=== PATIENT | female | born 1955 | race Caucasian/White ===

== ENCOUNTER 2016-09-14 09:34 | Inpatient (IN) | payer MEDICAID ==
[~2016-09-14] VITALS: Ht 165.1 cm; Wt 74.9 kg
[2016-09-14] VITALS (10 sets, daily range): BP systolic 105–184; BP diastolic 57–91; PULSE 49–70; RESP 12–16; TEMP 98.3; Ht 165.1 cm; Wt 74.9 kg
[2016-09-14] MEDS ORDERED: LABETALOL HCL 20MG INJ IV ONE ×2 (11:00→12:30)
--- NOTE | 2016-09-14 11:29 | RADRPT ---
PROCEDURE: Chest Radiograph. CLINICAL INDICATION: Hypertension. Chest pain. TECHNIQUE: Single frontal chest radiograph. COMPARISON: None available FINDINGS: The cardiomediastinal silhouette is within normal limits. No infiltrate or effusion is seen. Th e bones are intact. IMPRESSION: 1. Unremarkable chest radiograph. RPTAT: KK .Randolph Tran MD, MD Date Time Electronically viewed and signed by .Randolph Tran MD, on 09/14/2016 11:28 .B/
[2016-09-14] MEDS ORDERED: ONDANSETRON 4 MG INJ IV STA ×3 (11:36→13:34)
[2016-09-14 11:56] LABS: BASOPHILS % 0.3 % (0.0-2.0); EOSINOPHILS % 0.3 % (0.0-7.0); HEMOGLOBIN 14.1 g/dl (12.0-16.0); LYMPHOCYTES # 1.4 10^3/ul (0.8-2.9); LYMPHOCYTES % 13.2 % (15.0-51.0); MEAN CORPUSCULAR HEMOGLOBIN 29.1 pg (29.0-33.0); MEAN CORPUSCULAR HGB CONC 33.5 g/dl (32.0-37.0); MEAN CORPUSCULAR VOLUME 86.9 fl (82.0-101.0); MEAN PLATELET VOLUME 8.6 fl (7.4-10.4); MONOCYTE # 0.4 10^3/ul (0.3-0.9); MONOCYTES % 3.4 % (0.0-11.0); NEUTROPHIL # 8.6 10^3/ul (1.6-7.5); NEUTROPHILS % 82.8 % (39.0-77.0); PLATELET COUNT 270 10^3/UL (140-440); RED BLOOD COUNT 4.83 10^6/ul (4.20-5.40); UNCORRECTED WBC 10.4 10^3/ul (4.8-10.8); WHITE BLOOD COUNT 10.4 10^3/ul (4.8-10.8)
[2016-09-14] MEDS ORDERED: hydrALAzine 20 MG INJ IV ONE (12:00)
[2016-09-14] MEDS ORDERED: MECLIZINE 12.5 MG TAB PO ONE (12:00)
[2016-09-14 12:07] LABS: CONDITION 1
[2016-09-14 12:09] LABS: ALBUMIN 4.4 g/dl (3.3-4.9); CHLORIDE 104 mmol/L (97-110); SODIUM 144 mmol/L (135-144)
[2016-09-14 12:10] LABS: POTASSIUM 3.7 mmol/L (3.5-5.1)
[2016-09-14 12:12] LABS: ALANINE AMINOTRANSFERASE 24 IU/L (13-69); ALBUMIN/GLOBULIN RATIO 1.18; ALKALINE PHOSPHATASE 90 IU/L (42-121); ANION GAP 18 (8-16); ASPARTATE AMINO TRANSFERASE 23 IU/L (15-46); BILIRUBIN,INDIRECT 0.3 mg/dl (0-1.1); BILIRUBIN,TOTAL 0.3 mg/dl (0.2-1.3); BLOOD UREA NITROGEN 12 mg/dl (7-20); CARBON DIOXIDE 26 mmol/L (21-31); CREATININE 0.63 mg/dl (0.44-1.00); GLUCOSE 128 mg/dl (70-220); TOTAL PROTEIN 8.1 g/dl (6.1-8.1)
--- NOTE | 2016-09-14 12:12 | RADRPT ---
PROCEDURE: CT Head without. CLINICAL INDICATION: Hypertension with headache. TECHNIQUE: The study was performed utilizing a multi-slice, multidetector CT scanner. Direct spira l 1 mm axial sections were obtained through the head without the use of intravenous contrast materia l. Coronal and sagittal reformations were obtained. The images were reviewed on a PACS workstation. RADIATION DOSE: CTDIvol: 44.8 mGyDLP: 630.2 mGy-cm COMPARISON: No prior studies are available for comparison. FINDINGS: There is a well-circumscribed, wedge-shaped hyperdensity involving the left posterior temporal lobe (axial series image 12, coronal series image 60), with minimal adjacent vasogenic edema. The geronimo-w richardson matter differentiation appears preserved of the remaining brain parenchyma. There is no extra- axial fluid collection, mass lesion, midline shift or hydrocephalus. The ventricles, sulci and cist erns are within normal limits. The remaining white matter is unremarkable. The basal cisterns are patent. The midline structures are intact. The orbits, calvarium and extracranial soft tissues are normal in appearance. The visualized paranasal sinuses, mastoid air cells and middle ear cavities a re normally aerated. IMPRESSION: 1. Wedge-shaped hyperdensity involving the left posterior temporal lobe, with mild edema in the adj acent white matter. This finding is concerning for acute hemorrhagic infarct. MRI is recommended f or further evaluation. 2. No extra-axial fluid collection, mass lesion or hydrocephalous. The above findings were discussed with Patient's physician JASMIN DWYER by telephone on 12:08:40 PM. RPTAT: DD .Hans Padron MD, Date Time Electronically viewed and signed by .Hans Padron MD, MD on 09/14/2016 12:11 .S/
[2016-09-14 12:13] LABS: CALCIUM 9.6 mg/dl (8.4-10.2)
[2016-09-14 12:18] LABS: INR 1.07; PARTIAL THROMBOPLASTIN TIME 29.2 Sec (25.0-35.0); PROTIME 13.9 Sec (12.2-14.2); PT RATIO 1.1
--- NOTE | 2016-09-14 12:55 | ERA ---
ER Documentation Chief Complaint Date/Time DATE: 09/14/16 TIME: 12:49 Chief Complaint DIZZINESS, NAUSEA, ONSET LAST NIGHT, NO HEADACHE, AAOX4, NO WEAKNESS HPI This is a very pleasant 61-year-old female that presents to the emergency department with no past medical history complaining of a sudden onset of dizziness that began yesterday evening roughly 10 hours prior to arrival. She stated the dizziness was worse when she would stand up or walk around and was better when she was lying supine and closing her eyes. She denied any vertigo. She felt nauseous but did not experience any hemoptysis hematemesis or melanotic stools. The patient denies any changes in vision nor is the patient experiencing headache. She denies any weakness of her upper or lower extremities. She denies any abdominal pain. She has no shortness of breath at rest or exertion. She has no chest pain or pressure that radiates to the neck or back or jaw. She did not take any analgesic medication prior to arrival ROS All systems reviewed and are negative except as per history of present illness. Medications Home Meds No Active Prescriptions or Reported Meds Allergies Allergies: Coded Allergies: No Known Allergy (Unverified , 09/14/16) PMhx/Soc Medical and Surgical Hx: pt denies Medical Hx, pt denies Surgical Hx Hx Alcohol Use: No Hx Substance Use: No Hx Tobacco Use: No Smoking Status: Never smoker Physical Exam Vitals Vital Signs Date Time Temp Pulse Resp B/P Pulse Ox O2 Delivery O2 Flow Rate FiO2 09/14/16 12:31 56 17 186/84 100 Room Air 09/14/16 10:58 55 19 201/100 100 Room Air 09/14/16 10:05 231/98 09/14/16 09:39 97.5 61 18 208/98 98 Physical Exam Constitutional:Well-developed. Well-nourished. HEENT:Normocephalic. Atraumatic.Pupils were equal round reactive to light. Moist mucous membranes.No tonsillar exudates. Fundoscopy exam showed sharp optic disc bilaterally venous pulsations were present Neck: No nuchal rigidity. No lymphadenopathy. No posterior cervical spine tenderness or step-offs. Respiratory: Not using accessory muscles of respiration.Lungs were clear to auscultation bilaterally. No rhonchi. No rales. No wheezing. Cardiovascular: Regular rate regular rhythm.No murmurs. No rubs were appreciated.S1, S2 normal. Distal pulses are palpable 2+ bilaterally. GI: Abdomen was soft. Nontender. Non Distended. No pulsatile abdominal masses or bruits. No rebound. No guarding. Bowel sounds were present and normal. Muscle skeletal: Full range of motion of both the upper and lower extremities bilaterally.Normal muscle tone.No assymetrical calf tenderness or swelling. Skin: No petechia, no purpura. No lesions on the palms or the soles of the feet. No maculopapular rash. NEURO: Patient was alert, awake, orientated x3.No facial droop. Gait observed and normal with no ataxia.Speech had regular rate and rhythm. No focal neurological deficits. Result Diagram: 09/14/16 1140 09/14/16 1140 Results 24 hrs Laboratory Tests Test 09/14/16 11:40 Activated Partial Thromboplast Time 29.2Sec Alanine Aminotransferase (ALT/SGPT) 24IU/L Albumin 4.4g/dl Albumin/Globulin Ratio 1.18 Alkaline Phosphatase 90IU/L Anion Gap 18 Aspartate Amino Transf (AST/SGOT) 23IU/L Basophils # 0.010^3/ul Basophils % 0.3% Blood Urea Nitrogen 12mg/dl Calcium Level 9.6mg/dl Carbon Dioxide Level 26mmol/L Chloride Level 104mmol/L Creatinine 0.63mg/dl Direct Bilirubin 0.00mg/dl Eosinophils # 0.010^3/ul Eosinophils % 0.3% Globulin 3.70g/dl Glucose Level 128mg/dl Hematocrit 42.0% Hemoglobin 14.1g/dl INR International Normalized Ratio 1.07 Indirect Bilirubin 0.3mg/dl Lymphocytes # 1.410^3/ul Lymphocytes % 13.2% Mean Corpuscular Hemoglobin 29.1pg Mean Corpuscular Hemoglobin Concent 33.5g/dl Mean Corpuscular Volume 86.9fl Mean Platelet Volume 8.6fl Monocytes # 0.410^3/ul Monocytes % 3.4% Neutrophils # 8.610^3/ul Neutrophils % 82.8% Nucleated Red Blood Cells # 0.010^3/ul Nucleated Red Blood Cells % 0.0/100WBC Platelet Count 94884^3/UL Potassium Level 3.7mmol/L Prothrombin Time 13.9Sec Prothrombin Time Ratio 1.1 Red Blood Count 4.8310^6/ul Red Cell Distribution Width 14.0% Sodium Level 144mmol/L Total Bilirubin 0.3mg/dl Total Protein 8.1g/dl Troponin I Pending White Blood Count 10.410^3/ul Current Medications Medications (Trade) Dose Ordered Sig/Heath Route PRN Reason Start Time Stop Time Status Last Admin Dose Admin Labetalol HCl (Labetalol) 20 mg ONCE ONCE IV 09/14/16 11:00 09/14/16 11:01 Cancel Hydralazine HCl (Apresoline) 10 mg ONCE ONCE IV 09/14/16 12:00 09/14/16 12:01 DC 09/14/16 12:00 Ondansetron HCl (Zofran Inj) 4 mg ONCE STAT IV 09/14/16 11:36 09/14/16 11:38 DC 09/14/16 12:00 Meclizine HCl (Antivert) 25 mg ONCE ONCE PO 09/14/16 12:00 09/14/16 12:01 DC 09/14/16 12:00 Labetalol HCl (Labetalol) 10 mg ONCE ONCE IV 09/14/16 12:30 09/14/16 12:31 DC 09/14/16 12:30 Ondansetron HCl (Zofran Inj) 4 mg ONCE STAT IV 09/14/16 12:41 09/14/16 12:43 DC Procedures/MDM This patient presented to the emergency department with severely elevated blood pressure and no history of hypertension and also had new onset dizziness. My differential diagnosis included but was not limited to conditions that could end -organ damage such as acute coronary syndrome, acute pulmonary edema, aortic dissection, subarachnoid hemorrhage, intracerebral hemorrhage, cerebral infarction, withdrawal syndromes from beta blockers, or states of catecholamine excess such as pheochromocytoma or drug intoxication. The patient had uncontrolled hypertensive with end-organ damage to suggest hypertensive emergency. The treatment goal was immediate reduction of the mean arterial blood pressure. This was done in a controlled, graded manor, using improvement of the patient's condition as a guide. The patient's blood pressure reduction did not exceed more then a 20-25 percent reduction within the first 30 to 60 minutes. I obtained a CT scan of the head which showed a wedge shaped hyperdensity in the left posterior temporal lobe that had minimal adjacent vasogenic edema. The patient was immediately placed on a rn cardiac rehab continuous pulse oximetry and IV access had been established by nursing staff upon her arrival into the emergency department The patient was put on a rn cardiac rehab, continuous pulse oximetry, and IV access was established by nursing staff. The antihypertensive agent used was IV hydralazine as the patient was bradycardic. The blood pressure had slightly improved and the patient is no longer bradycardic and therefore IV labetalol was given as a further antihypertensive agent. 12 Lead EKG tracing ordered and reviewed by myself showed: Sinus bradycardia 51 bpm and no arrhythmia. DC interval normal. QRS duration normal. No ST segment elevation No ST segment depression. No changes consistent with acute ischemia. I spoke with the neurosurgeon Dr. Maurice who kindly stated he will be consulted on the case. The patient will be admitted to the intensive care unit with an anticipated stay of greater than 2 midnights under the care of the hospitalist Dr. Esparza. Nursing staff approached me and indicated that the patient's blood pressure continued to become rise despite the above antihypertensive treatment. Therefore at this time the patient was started on a nipride drip for blood pressure control. Critical Care: Time: 65 minutes Treatments/Evaluations: Close monitoring and treatment of unstable vital signs, cardiorespiratory, and neurologic status, while maintaining tight balance of fluid, respiratory, and cardiac interventions. Departure Diagnosis: Primary Impression: Acute intracerebral hemorrhage Additional Impression: Hypertensive emergency, no CHF Condition: Serious YULIYA CASTELLANOS Sep 14, 2016 12:55
[2016-09-14] MEDS ORDERED: niCARdipine-D5W 0.1MG/ML DRIP 200 ML IV STA (12:57)
[2016-09-14] MEDS ORDERED: morphine 4 MG/ML VIAL IV STA (13:34)
[2016-09-14 13:55] LABS: ADD UMIC YES; URINE BILIRUBIN (Dip) NEGATIVE (NEGATIVE); URINE BLOOD (Dip) NEGATIVE (NEGATIVE); URINE COLOR LT. YELLOW (YELLOW); URINE GLUCOSE (Dip) NEGATIVE (NEGATIVE); URINE KETONES (Dip) NEGATIVE (NEGATIVE); URINE LEUKOCYTE ESTERASE (Dip) TRACE (NEGATIVE); URINE NITRITE (Dip) NEGATIVE (NEGATIVE); URINE TOTAL PROTEIN (Dip) NEGATIVE (NEGATIVE); URINE UROBILINOGEN (Dip) 0.2 E.U./dL (0.1-1.0)
[2016-09-14 14:03] LABS: SQUAMOUS EPITHELIAL CELL,UR FEW; URINE RBCS NONE SEEN /HPF (0)
[2016-09-14 14:12] LABS: TROPONIN-I < 0.012 ng/ml (0.00-0.12)
[2016-09-14] MEDS ORDERED: IOHEXOL 100 ML ONE ×2 (15:02→20:18)
[2016-09-14] MEDS ORDERED: SOD CHLORIDE 0.9% 100 ML ONE ×2 (15:02→20:18)
--- NOTE | 2016-09-14 15:48 | RADRPT ---
PROCEDURE: CTA Head. CLINICAL INDICATION: Hypertension. Headache. Left temporal lobe hyperdensity. TECHNIQUE: CTA of the head was obtained with 1 mm axial images. Sagittal and coronal reformations and MIPs were provided. The administered radiation dose was CTDI vol = 42.19, 27.66 mGy, DLP = 21.1 , 482.47 mGy-cm. Images were obtained prior following the intravenous contrast administration of 90 cc of Omnipaque 350 contrast. Coronal and sagittal as well as maximal intensity projection reformat ions were obtained. COMPARISON: There are no similar studies submitted for comparison. Noncontrast CT of the head from [facility] same day. FINDINGS: CTA head: Carotid arteries: There are minimal vascular calcifications within the left carotid bulb. Patent bi laterally without evidence of stenosis. Anterior cerebral arteries: Patent bilaterally without evidence of stenosis. Middle cerebral arteries: There is moderate focal stenosis of the proximal right M1 segment (image 1 51 series 2). There is tortuosity of the right middle cerebral artery bifurcation. There is mild lo ng segment stenosis of the left M2 branch. Posterior cerebral arteries: There is multifocal moderate irregularity of the left P1/P2 segments wi th associate stenosis. The right posterior cerebral artery is patent without stenosis. Anterior communicating artery: Present. Posterior communicating arteries: Not visualized bilaterally. Basilar artery: Patent without evidence of stenosis. Vertebral arteries: Patent bilaterally without evidence of stenosis. Vertebral artery dominance: Right. There is severe focal left superior cerebellar artery stenosis. Aneurysm: No aneurysm is identified. Venous sinuses: Patent. There is no abnormal enhancement within the left posterior temporal hyperdense region. IMPRESSION: 1. Moderate focal right M1 middle cerebral artery stenosis. 2. Mild long segment left M2 middle cerebral artery stenosis. 3. Moderate multifocal left P1/P2 posterior cerebral artery stenosis. 4. Severe focal stenosis of the proximal left superior cerebellar artery. 5. No evidence of aneurysm. 6. No abnormal enhancement within the left posterior temporal hyperdense region. MRI of the brain m ay be performed as clinically warranted. Further findings as detailed above. RPTAT: PP .Ryan Gaytan MD, Date Time Electronically viewed and signed by .Ryan Gaytan MDMD on 09/14/2016 15:48 .F/
[2016-09-14] MEDS ORDERED: HYDROCODONE/APAP (5/325) TAB PO PRN (19:00)
[2016-09-14] MEDS ORDERED: morphine 2 MG INJ IV PRN (19:00)
[2016-09-14] MEDS ORDERED: ACETAMINOPHEN 325 MG TAB PO PRN (19:00)
[2016-09-14] MEDS ORDERED: ONDANSETRON 4 MG INJ IV PRN (19:00)
[2016-09-14] MEDS ORDERED: DOCUSATE SODIUM 100 MG CAP PO PRN (19:00)
--- NOTE | 2016-09-14 20:14 | QN ---
Documentation Comment 61 year old with left temporal hyperdensity c/w hemorrhage (venous infarct?); CTA negative to my read for any underlying vascular pathology. I recommend ICU admission for q1hour neurochecks and repeat CT in the AM to r/o progression. Will also check CTV. Avoid anticoagulation for now. CHER SANTANA MD Sep 14, 2016 20:13
[2016-09-14] MEDS ORDERED: IOHEXOL 350MG/ML 50 ML BTL ONE (21:30)
[2016-09-14] MEDS: hydrALAzine 20 MG INJ IV PRN (22:18)
[2016-09-15] VITALS (36 sets, daily range): BP systolic 93–150; BP diastolic 45–76; PULSE 48–63; RESP 13–25
--- NOTE | 2016-09-15 04:07 | HP ---
DATE OF ADMISSION: 09/14/2016 HISTORY OF PRESENT ILLNESS: The patient is a 61-year-old female with no past medical history. The patient presents with headache that started yesterday. She states that the pain is throughout her h ead. She presented to the ED where brain CT showed an acute hemorrhagic infarct. She has no focal weakness, no loss of sensation. Her only complaint is the headache. The patient has no history of strokes. She has no other acute complaints. Denies any current nausea or vomiting, abdominal pain, change in her bowel habits. She did state that she had some nausea and vomiting yesterday but it h as now resolved. Dr. Maurice was called in the ED, and he stated that he could be consulted on the case. PAST MEDICAL HISTORY: Negative. PAST SURGICAL HISTORY: . HOME MEDICATIONS: None. ALLERGIES: NO KNOWN DRUG ALLERGIES. FAMILY HISTORY: She denies any history of clotting disorders, premature strokes, or heart attacks. SOCIAL HISTORY: Denies any alcohol, tobacco, or drug abuse. REVIEW OF SYSTEMS: A 12-point review of systems is negative except for that discussed in HPI. PHYSICAL EXAMINATION: VITAL SIGNS: Temperature is 98.3, pulse is 53, respiratory rate 17, BP is 139/63, saturation 98% on room air. GENERAL: No acute distress, alert and oriented. HEENT: Normocephalic, atraumatic. LUNGS: Clear to auscultation. CARDIOVASCULAR: Regular rate and rhythm. ABDOMEN: Nondistended, nontender, soft. EXTREMITIES: No clubbing, cyanosis, or edema. NEUROLOGIC: No focal deficits. Strength is intact. LABORATORIES: White count is 10.4, hemoglobin is 14.1, platelets are 270. Chemistry within normal limits except for anion gap is 18. INR is 1.07. UA is within normal limits except for trace leukoc yte esterase. DIAGNOSTICS: Chest x-ray shows unremarkable chest. Brain CT shows wedge shaped hyperdensity involv ing the left posterior temporal lobe with mild edema in adjacent white matter. Findings are concern ing for acute hemorrhagic infarct. No fluid collection, mass lesion, or hydrocephalus. Head CTA sh ows moderate focal right M1 cerebral artery stenosis, ____ segment of the left M2 middle cerebral ar chirag stenosis, moderate multilevel left T1 P2 posterior cerebral artery stenosis, severe focal steno sis of the proximal left superior cerebellar artery. No evidence of aneurysm. No abnormal enhancem ent within the left posterior temporal hyperdense region. ASSESSMENT AND PLAN: 1. Headache secondary to acute hemorrhagic infarct. Neurosurgery has been consulted in the ED. We will followup up with Dr. Maurice's recommendations. The patient has no acute focal neurological f indings, and strength is intact and symmetrical. We will admit to the ICU. We will keep blood pres sure controlled below 160. Currently, BP is stable. We will give morphine and [place] for the headac he. 2. Atherosclerosis within the cerebral arteries. The patient has mild to moderate stenosis in mult iple cerebral arteries. The patient has no history of hypertension or diabetes. No family history of clotting disorders. No aspirin at this time secondary to intracranial hemorrhage. 3. Prophylaxis: SCDs. Dictated By: CRISTHIAN ANGUIANO MD BS/NTS Conf#: [id number] DID#: [id number]
[2016-09-15 04:56] LABS: POTASSIUM 3.9 mmol/L (3.5-5.1)
[2016-09-15 04:59] LABS: CREATININE 0.86 mg/dl (0.44-1.00); PHOSPHORUS 4.7 mg/dl (2.5-4.9)
[2016-09-15 05:00] LABS: CALCIUM 9.5 mg/dl (8.4-10.2); CHOL/HDL RATIO 4.7 RATIO; MAGNESIUM 2.4 mg/dl (1.7-2.5)
[2016-09-15] MEDS: PANTOPRAZOLE 40 MG INJ IV SCH ×2 (05:32→05:38)
[2016-09-15] MEDS: NACL 0.9% 3 ML SYG IV SCH (05:38)
[2016-09-15 06:30] LABS: BASOPHILS % 0.1 % (0.0-2.0); EOSINOPHILS % 0.2 % (0.0-7.0); HEMATOCRIT 39.7 % (37.0-47.0); HEMOGLOBIN 13.4 g/dl (12.0-16.0); LYMPHOCYTES # 1.7 10^3/ul (0.8-2.9); LYMPHOCYTES % 18.6 % (15.0-51.0); MEAN CORPUSCULAR HEMOGLOBIN 29.2 pg (29.0-33.0); MEAN CORPUSCULAR HGB CONC 33.8 g/dl (32.0-37.0); MEAN CORPUSCULAR VOLUME 86.5 fl (82.0-101.0); MEAN PLATELET VOLUME 9.3 fl (7.4-10.4); MONOCYTE # 0.5 10^3/ul (0.3-0.9); MONOCYTES % 5.4 % (0.0-11.0); NEUTROPHIL # 6.8 10^3/ul (1.6-7.5); NEUTROPHILS % 75.7 % (39.0-77.0); PLATELET COUNT 281 10^3/UL (140-440); RED BLOOD COUNT 4.59 10^6/ul (4.20-5.40); RED CELL DISTRIBUTION WIDTH 13.9 % (11.5-14.5)
[2016-09-15 06:44] LABS: CONDITION 1
--- NOTE | 2016-09-15 10:17 | RADRPT ---
PROCEDURE: CTA Head. CLINICAL INDICATION: Venous infarction. Left temporal lobe hyperdensity. TECHNIQUE: CTA of the head was obtained with 1 mm axial images. Sagittal and coronal reformations a nd MIPs were provided. The administered radiation dose was CTDI vol = 66.31, 31.77, 45.01 mGy, DLP = 30.15, 711.08, 720.23 mGy-cm. Images were obtained prior following the intravenous contrast admini stration of 110 cc of Omnipaque 350 contrast. Coronal and sagittal as well as maximal intensity pro jection reformations were obtained. COMPARISON: CTA of the head and noncontrast CT of the head from July 15, 2017 FINDINGS: CTA head: Carotid arteries: There are minimal vascular calcifications within the left cavernous carotid artery . Patent bilaterally without evidence of stenosis. Anterior cerebral arteries: Patent bilaterally without evidence of stenosis. Middle cerebral arteries: There is moderate focal stenosis of the proximal right M1 segment. There i s tortuosity of the right middle cerebral artery bifurcation. There is mild long segment stenosis of the left M2 branch. Posterior cerebral arteries: There is multifocal moderate irregularity of the left P1/P2 segments wi th associated stenosis. The right posterior cerebral artery is patent without stenosis. Anterior communicating artery: Present. Posterior communicating arteries: Not visualized bilaterally. Basilar artery: Patent without evidence of stenosis. Vertebral arteries: Patent bilaterally without evidence of stenosis. Vertebral artery dominance: Right. There is severe focal left superior cerebellar artery stenosis. Aneurysm: No aneurysm is identified. Venous sinuses: Patent. CT head with contrast: No significant change from recent noncontrast head CT given limitations of contrast. There is no abnormal enhancement within the left posterior temporal hyperdense region. IMPRESSION: No significant change. 1. No evidence of venous sinus thrombosis. 2. Moderate focal right M1 middle cerebral artery stenosis. 3. Mild long segment left M2 middle cerebral artery stenosis. 4. Moderate multifocal left P1/P2 posterior cerebral artery stenosis. 5. Severe focal proximal left superior cerebellar artery stenosis. 6. No evidence of aneurysm. 7. No abnormal enhancement within the left posterior temporal hyperdense region. Further findings as detailed above. RPTAT: PP .Ryan Gaytan MD, MD Date Time Electronically viewed and signed by .Ryan Gaytan MD, MD on 09/15/2016 10:16 .F/
--- NOTE | 2016-09-15 13:50 | RADRPT ---
AMENDMENT: 09/16/2016 9:54:15 AM Dereck Hester) Findings were discussed with Dr. Maurice on 09/15/2016 3:50 PM. The location of hemorrhage and prior CT and CTA findings are suggestive of hemorrhage in the setting of a venous thrombosis in the distribution of vein of Efren. PROCEDURE: MRI Brain without and with contrast. CLINICAL INDICATION: Intracranial hemorrhage, history of hypertension. TECHNIQUE: An MRI of the brain was performed utilizing the following sequences: Sagittal T1-weigh danilo, axial T2-weighted, axial FLAIR, axial T1, coronal GRE axial diffusion-weighted with ADC mapping . Following the uneventful administration of 10 cc Magnevist, postcontrast axial and coronal T1-weig hted images were obtained. Images were viewed on a PACS workstation. COMPARISON: Brain CT and CTA 09/14/2016. FINDINGS: There is left posterior temporal lobe hemorrhage with associated susceptibility artifact, which is l ikely acute to subacute with trace surrounding vasogenic edema. No definite associated enhancing les ion is noted considering susceptibility artifacts. No diffusion weighted abnormalities are seen to suggest the presence of acute ischemia or recent inf arct. There is no intracranial hemorrhage, mass effect, or midline shift. No extra-axial fluid col lection is seen. The ventricles and sulci are age-appropriate. There are few tiny scattered foci of T2 and FLAIR hyperintensity in the white matter, which are nons pecific in etiology but likely reflect chronic small vessel ischemic changes. The gradient echo nayely ges reveal no areas of susceptibility artifact to suggest blood degradation products or abnormal emilie cification. No abnormal intraparenchymal, meningeal or ependymal enhancement is seen. No abnormal intracranial vascular flow voids are noted. The pituitary and sella reveal no abnormali ty. The suprasellar cistern is clear. The visualized paranasal sinuses demonstrate trace scattered mucosal thickening. The mastoid air cells are clear. IMPRESSION: 1. Left posterior temporal lobe probable acute to subacute hemorrhage with trace surrounding vasoge bee edema. No definite associated enhancing lesion is noted considering susceptibility artifacts. 2. No acute intracranial infarction or mass. No intracranial enhancing abnormality. 3. Trace presumed chronic small vessel ischemic changes. RPTAT: QQ .Dereck Olmos MD, MD Date Time Electronically viewed and signed by .Dereck Olmos MD, MD on 09/16/2016 09:56 .N/
--- NOTE | 2016-09-15 14:12 | PN ---
Date/Time of Note Date/Time of Note DATE: 09/15/16 TIME: 14:06 Assessment/Plan VTE Prophylaxis VTE Prophylaxis Intervention: SCD's Lines/Catheters IV [facility]from [facility] Saline Lock Urinary Cath still in place: No Assessment/Plan Chief Complaint/Hosp Course 1. Headache secondary to acute hemorrhagic infarct -NS consult appreciated -Neurology consult, BP control 2. Atherosclerosis within the cerebral arteries. The patient has mild to moderate stenosis in multiple cerebral arteries -A1c and lipid profile within normal limits - No family history of clotting disorders, no aspirin at this time secondary to intracranial hemorrhage. 3. Prophylaxis: SCDs. Problems: Subjective 24 Hr Interval Summary Neurologic: headache Exam/Review of Systems Vital Signs Vitals Vital Signs Date Time Temp Pulse Resp B/P Pulse Ox O2 Delivery O2 Flow Rate FiO2 09/15/16 12:10 98.5 57 25 132/58 95 Room Air 09/14/16 12:32 2 Intake and Output 09/14/16 09/14/16 09/15/16 15:00 23:00 07:00 Intake Total 50 ml 120 ml Output Total 1250 ml Balance -1200 ml 120 ml Exam Constitutional: alert Respiratory: clear to auscultation Cardiovascular: regular rate and rhythm Gastrointestinal: soft, No distended Musculoskeletal: nl extremities to inspection Results Result Diagram: 09/15/16 0420 09/15/16 0420 Results 24 hrs Laboratory Tests Test 09/15/16 04:20 Anion Gap 16 Basophils # 0.0 Basophils % 0.1 Blood Urea Nitrogen 19 Calcium Level 9.5 Carbon Dioxide Level 26 Chloride Level 106 Cholesterol Level 193 Cholesterol/HDL Ratio 4.7 Creatinine 0.86 Eosinophils # 0.0 Eosinophils % 0.2 Glucose Level 120 HDL Cholesterol 41 Hematocrit 39.7 Hemoglobin 13.4 Hemoglobin A1c 6.2 H LDL Cholesterol, Calculated 125 Lymphocytes # 1.7 Lymphocytes % 18.6 Magnesium Level 2.4 Mean Corpuscular Hemoglobin 29.2 Mean Corpuscular Hemoglobin Concent 33.8 Mean Corpuscular Volume 86.5 Mean Platelet Volume 9.3 Monocytes # 0.5 Monocytes % 5.4 Neutrophils # 6.8 Neutrophils % 75.7 Nucleated Red Blood Cells # 0.0 Nucleated Red Blood Cells % 0.0 Phosphorus Level 4.7 Platelet Count 281 Potassium Level 3.9 Red Blood Count 4.59 Red Cell Distribution Width 13.9 Sodium Level 144 Triglycerides Level 137 White Blood Count 9.0 Medications Medications Current Medications Ondansetron HCl (Zofran Inj) 4 mg Q6H PRN IV NAUSEA AND/OR VOMITING Last administered on 09/15/16 08:09; Admin Dose 4 MG; Start 09/14/16 at 19:00 Acetaminophen (Tylenol Tab) 650 mg Q6H PRN PO PAIN LEVEL 1-3 OR FEVER; Start at 19:00 Acetaminophen/ Hydrocodone Bitart ([place] (5/325)) 1 tab Q6H PRN PO MODERATE PAIN LEVEL 4-6 Last administered on 09/14/16 21:30; Admin Dose 1 TAB; Start at 19:00 Morphine Sulfate (morphine) 2 mg Q4H PRN IV SEVERE PAIN LEVEL 7-10 Last administered on 09/15/16 08:10; Admin Dose 2 MG; Start 09/14/16 at 19:00 Docusate Sodium (Colace) 100 mg Q12H PRN PO CONSTIPATION; Start 09/14/16 at 19: 00 Pantoprazole (Protonix Iv) 40 mg DAILY@06 IV Last administered on 09/15/16 05: 32; Admin Dose 40 MG; Start 09/15/16 at 06:00 Hydralazine HCl (Apresoline) 10 mg Q4H PRN IV For SBP >160 Last administered on 09/14/16 22:18; Admin Dose 10 MG; Start 09/14/16 at 22:30 CRISTHIAN ANGUIANO Sep 15, 2016 14:11
[2016-09-15] MEDS ORDERED: LABETALOL HCL 20MG INJ IV PRN (14:30)
--- NOTE | 2016-09-15 16:44 | QN ---
Documentation Comment 61 year old female with right gaze neglect/ deficit. CTH shows small posterior left temporal hyperdensity without mass effect. On exam patient is awake alert and moving all extremities spontaneously and with full power. CTA/CTV/MRI show no underlying vascular abnormality. ? thrombosed vessel/ dot sign on non- contrast CT in region of vein of Efren. Overall picture is consistent with venous thrombosis. No neurosurgical intervention is needed for this finding. Consider neurology consultation. OK from neurosurgical standpoint to leave ICU. CHER SANTANA MD Sep 15, 2016 16:44
--- NOTE | 2016-09-15 23:35 | CONS ---
DATE OF ADMISSION: 09/14/2016 DATE OF CONSULTATION: ADDENDUM I have reviewed the available medical records. The patient did not seem to have gaze deviation as we ll as nystagmus observed by the primary doctor on admission in the emergency department, though seem ed to be stable findings with gaze deviation at least per nursing notes today. Given somewhat worse jemma change in neurological deficits, especially with most probable diagnosis of venous thrombosis. I think it is reasonable to start anticoagulation. I will put patient on Lovenox 1 mg/kg q.12. PLAN: Will review all imaging studies with neuroradiologist in the morning. Dictated By: THEODORA ASTORGA/MARY Conf#: [id number] DID#: [id number]
[2016-09-16] VITALS (29 sets, daily range): BP systolic 117–175; BP diastolic 53–93; PULSE 44–64; RESP 10–23
--- NOTE | 2016-09-16 00:02 | CONS ---
DATE OF ADMISSION: 09/14/2016 DATE OF CONSULTATION: 09/15/2016 TYPE OF CONSULTATION: Neurological. Thank you, Dr. Garay, for your kind referral. HISTORY OF PRESENT ILLNESS: The patient is a 61-year-old lady with essentially no past medical history, came yesterday with complaints of headache and dizziness which started day before yesterday. Brain CAT scan shows acute temporal intracerebral hemorrhage, sort of wedge-shaped hyperdensity with mild edema in adjacent white matter. The patient was evaluated by neurosurgeon, who suspected venous infarct because of location of the hemorrhage. CT angiogram was negative. It did not show any abnormality in venous sinuses. There are atherosclerotic changes, most severe focal stenosis in the proximal left superior cerebellar artery. No aneurysms and no enhancement along with the hyperdense lesion of hemorrhage. She also had MRI of the brain already which shows left posterior temporal lobe probable acute to subacute hemorrhage with trace of surrounding vasogenic edema, no definite associated lesions seen. Neurosurgeon, Dr. Maurice, placed a note that to him it looks that she possibly has thrombosed vessel and overall picture is consistent with venous thrombosis, no neurosurgical intervention is needed. So far, patient is on labetalol p.r.n. systolic blood pressure more than 160. She stated that her vertigo and headache have resolved. She complains of blurry vision. She is also on Protonix. ALLERGIES: NONE. SOCIAL HISTORY: No alcohol, tobacco, drug use. FAMILY HISTORY: Not contributory. REVIEW OF SYSTEMS: The patient denies any prior preceding trauma, infection. She doesn't take oral contraceptives. PHYSICAL EXAMINATION: VITAL SIGNS: Temperature 99.3, pulse 60, respirations 18, blood pressure 127/ 58. GENERAL: Not in acute distress, lying in bed. HEENT: Normocephalic, atraumatic head. NECK: No carotid bruits. No thyromegaly. LUNGS: Clear to auscultation bilaterally. CARDIAC: Normal cardiac rhythm and sounds. ABDOMEN: Soft, nontender. EXTREMITIES: No cyanosis, clubbing or edema. NEUROLOGIC: She is awake, alert and oriented. She was lethargic but easily arousable by my voice, became awake, alert and oriented x3 with fluent speech. Cranial nerve examination shows intact visual vaughan from the left, not as consistent from the right. Pupils reactive from 3 to 2 mm bilaterally. The patient has conjugate eye deviation to the left with some fine left-beating horizontal nystagmus as well as upbeating nystagmus, on upgaze. she could not cross the midline. I was not able to have her cross midline with oculocephalic maneuver as well. Slightly asymmetrical face with right nasolabial fold flattening. Present corneal reflexes, normal sensation on the face. Tongue is in midline. Motor strength examination preserved in all extremities. Normal bulk, tone and strength. Sensory examination intact to light touch and pain. Deep tendon reflexes 2+ throughout. Downgoing toes bilaterally. IMPRESSION: Acute intracerebral hemorrhage. Possible venous thrombosis according to neurosurgery note. No abnormality in venous sinuses found on CT angiogram. No underlying lesion. The patient's symptoms are improving. She doesn't complain of dizziness or headache, but she still has deviation of the eye to the left. I will not start anticoagulation now. The patient has been stable since admission. My plan is to review CT angiogram with neuroradiologist in the morning. If indeed there is evidence for venous sinus thrombosis, then anticoagulation with heparin or Lovenox should be initiated. I will put patient on Keppra for seizure prevention, will also send out hypercoagulable workup. Dictated By: THEODORA ASTORGA/MARY Conf#: [id number] DID#: [id number] QUYEN
[2016-09-16] MEDS: LEVETIRACETAM IV 500 MG in DEXTROSE 5% 100 ML IVPB SCH ×2 (00:39→08:54)
[2016-09-16 05:23] LABS: D-DIMER 1009.2 ng/ml (<460)
[2016-09-16] MEDS: PANTOPRAZOLE 40 MG INJ IV SCH (06:02)
[2016-09-16] MEDS: ENOXAPARIN 80 MG/0.8 ML SYG SC SCH ×2 (08:53→21:00)
--- NOTE | 2016-09-16 16:07 | PN ---
Date/Time of Note Date/Time of Note DATE: 09/16/16 TIME: 16:05 Assessment/Plan VTE Prophylaxis VTE Prophylaxis Intervention: SCD's Lines/Catheters IV [facility]ter Type (from [facility]): Saline Lock Urinary Cath still in place: No Assessment/Plan Chief Complaint/Hosp Course 1. Headache secondary to acute hemorrhagic infarct -NS consult appreciated, Pt continues to have a L gaze preference -Neurology consult, BP control -FU on repeat CT Head 2. Atherosclerosis within the cerebral arteries. The patient has mild to moderate stenosis in multiple cerebral arteries -A1c and lipid profile within normal limits - No family history of clotting disorders, no aspirin at this time secondary to intracranial hemorrhage. 3. Prophylaxis: SCDs. Problems: Subjective 24 Hr Interval Summary Constitutional: no complaints Exam/Review of Systems Vital Signs Vitals Vital Signs Date Time Temp Pulse Resp B/P Pulse Ox O2 Delivery O2 Flow Rate FiO2 09/16/16 14:00 55 14 118/55 97 09/16/16 12:00 98.5 Room Air 09/14/16 12:32 2 Intake and Output 09/15/16 09/15/16 09/16/16 15:00 23:00 07:00 Intake Total 900 ml 105 ml Output Total 300 ml 200 ml 100 ml Balance 600 ml -200 ml 5 ml Exam Constitutional: alert, oriented Respiratory: clear to auscultation Cardiovascular: regular rate and rhythm Gastrointestinal: soft, No distended Musculoskeletal: nl extremities to inspection Results Result Diagram: 09/15/16 0420 09/15/16 0420 Results 24 hrs Laboratory Tests Test 09/16/16 04:00 D-Dimer 1009.20 H D-Dimer Comment Medications Medications Current Medications Ondansetron HCl (Zofran Inj) 4 mg Q6H PRN IV NAUSEA AND/OR VOMITING Last administered on 09/15/16 08:09; Admin Dose 4 MG; Start 09/14/16 at 19:00 Acetaminophen (Tylenol Tab) 650 mg Q6H PRN PO PAIN LEVEL 1-3 OR FEVER; Start at 19:00 Acetaminophen/ Hydrocodone Bitart ([place] (5/325)) 1 tab Q6H PRN PO MODERATE PAIN LEVEL 4-6 Last administered on 09/14/16 21:30; Admin Dose 1 TAB; Start at 19:00 Morphine Sulfate (morphine) 2 mg Q4H PRN IV SEVERE PAIN LEVEL 7-10 Last administered on 09/15/16 08:10; Admin Dose 2 MG; Start 09/14/16 at 19:00 Docusate Sodium (Colace) 100 mg Q12H PRN PO CONSTIPATION; Start 09/14/16 at 19: 00 Pantoprazole (Protonix Iv) 40 mg DAILY@06 IV Last administered on 09/16/16 06: 02; Admin Dose 40 MG; Start 09/15/16 at 06:00 Hydralazine HCl (Apresoline) 10 mg Q4H PRN IV For SBP >160 Last administered on 09/14/16 22:18; Admin Dose 10 MG; Start 09/14/16 at 22:30 Labetalol HCl 20 mg 20 mg Q2H PRN IV SBP>160; Start 09/15/16 at 14:30 Levetiracetam/ Dextrose (Keppra Iv/D5W) 105 ml @ 420 mls/hr Q12 IVPB Last administered on 09/16/16 08:54; Admin Dose 420 MLS/HR; Start 09/15/16 at 23:00 Enoxaparin Sodium (Lovenox) 75 mg Q12 SC Last administered on 09/16/16 08:53; Admin Dose 75 MG; Start 09/16/16 at 09:00 CRISTHIAN ANGUIANO Sep 16, 2016 16:07
--- NOTE | 2016-09-16 16:34 | RADRPT ---
PROCEDURE: CT Brain without contrast. CLINICAL INDICATION: Follow-up intracranial hemorrhage TECHNIQUE: A CT of the brain was performed on a multidetector CT scanner utilizing axial sections from the skull base through the vertex without contrast. Images were reviewed on a high-resolution [employer] workstation. Exam CTDI = 44.16 mGy and the DLP = 630.20 mGy-cm. One or more of the following dose reduction techniques were used: Automated exposure control Adjustment of the mA and/or kV according to patient size. Use of iterative reconstruction technique. COMPARISON: CT head 09/14/2016 and MRI brain 09/15/2016. FINDINGS: Redemonstrated is a small area of intraparenchymal hemorrhage with minimal surrounding vasogenic stephen ma in the posterior left temporal lobe. There is no evidence of new intracranial hemorrhage, mass ef fect or midline shift. No abnormal intra-axial or extra-axial fluid collections are seen. The dens ity of the brain is normal and the geronimo/white matter differentiation is well preserved. The osseous structures and visualized paranasal sinuses are unremarkable. IMPRESSION: 1. Unchanged small area of hemorrhage with minimal surrounding vasogenic edema in the posterior lef t temporal lobe. 2. No new intracranial hemorrhage, increasing mass effect or midline shift. RPTAT: BB .Buddy Moser MD, MD Date Time Electronically viewed and signed by .Buddy Moser MD, MD on 09/16/2016 16:33 .O/
--- NOTE | 2016-09-16 19:56 | CONS ---
Date/Time of Note Date/Time of Note DATE: 09/16/16 TIME: 19:54 Consult Date/Type/Reason Admit Date/Time Sep 14, 2016 at 12:47 Initial Consult Date Subjective No events. No new complaints, no headache, dizziness. Same eye deviation Objective Vital Signs Date Time Temp Pulse Resp B/P Pulse Ox O2 Delivery O2 Flow Rate FiO2 09/16/16 18:00 Room Air 09/16/16 18:00 55 18 98 09/16/16 16:00 99.0 09/14/16 12:32 2 Intake and Output 09/15/16 09/15/16 09/16/16 15:00 23:00 07:00 Intake Total 900 ml 105 ml Output Total 300 ml 200 ml 100 ml Balance 600 ml -200 ml 5 ml Results/Medications Result Diagram: 09/15/16 0420 09/15/16 0420 Results 24 hrs Laboratory Tests Test 09/16/16 04:00 D-Dimer 1009.20 H D-Dimer Comment Medications Current Medications Ondansetron HCl (Zofran Inj) 4 mg Q6H PRN IV NAUSEA AND/OR VOMITING Last administered on 09/15/16 08:09; Admin Dose 4 MG; Start 09/14/16 at 19:00 Acetaminophen (Tylenol Tab) 650 mg Q6H PRN PO PAIN LEVEL 1-3 OR FEVER; Start at 19:00 Acetaminophen/ Hydrocodone Bitart ([place] (5/325)) 1 tab Q6H PRN PO MODERATE PAIN LEVEL 4-6 Last administered on 09/14/16 21:30; Admin Dose 1 TAB; Start at 19:00 Morphine Sulfate (morphine) 2 mg Q4H PRN IV SEVERE PAIN LEVEL 7-10 Last administered on 09/15/16 08:10; Admin Dose 2 MG; Start 09/14/16 at 19:00 Docusate Sodium (Colace) 100 mg Q12H PRN PO CONSTIPATION; Start 09/14/16 at 19: 00 Pantoprazole (Protonix Iv) 40 mg DAILY@06 IV Last administered on 09/16/16 06: 02; Admin Dose 40 MG; Start 09/15/16 at 06:00 Hydralazine HCl (Apresoline) 10 mg Q4H PRN IV For SBP >160 Last administered on 09/14/16 22:18; Admin Dose 10 MG; Start 09/14/16 at 22:30 Labetalol HCl 20 mg 20 mg Q2H PRN IV SBP>160; Start 09/15/16 at 14:30 Levetiracetam/ Dextrose (Keppra Iv/D5W) 105 ml @ 420 mls/hr Q12 IVPB Last administered on 09/16/16 08:54; Admin Dose 420 MLS/HR; Start 09/15/16 at 23:00 Enoxaparin Sodium (Lovenox) 75 mg Q12 SC Last administered on 09/16/16 08:53; Admin Dose 75 MG; Start 09/16/16 at 09:00 Assessment/Plan Chief Complaint/Hosp Course I discussed radiological studies with Dr. Schuster in AM; Addendum was made today to MRI report "The location of hemorrhage and prior CT and CTA findings are suggestive of hemorrhage in the setting of a venous thrombosis in the distribution of vein of Efren" PHYSICAL EXAMINATION: GENERAL: Not in acute distress, lying in bed. HEENT: Normocephalic, atraumatic head. NECK: No carotid bruits. No thyromegaly. LUNGS: Clear to auscultation bilaterally. CARDIAC: Normal cardiac rhythm and sounds. ABDOMEN: Soft, nontender. EXTREMITIES: No cyanosis, clubbing or edema. NEUROLOGIC: She is awake, alert and oriented. Fluent speech. Cranial nerve examination shows intact visual vaughan. Pupils reactive from 3 to 2 mm bilaterally. The patient has conjugate eye deviation to the left, she could not cross the midline. Slightly asymmetrical face with right nasolabial fold flattening. Present corneal reflexes, normal sensation on the face. Tongue is in midline. Motor strength examination preserved in all extremities. Normal bulk, tone and strength. Sensory examination intact to light touch and pain. Deep tendon reflexes 2+ throughout. Downgoing toes bilaterally. IMPRESSION: Acute intracerebral hemorrhage secondary to venous thrombosis. Started on anticoagulation with lovenox, will need coumadin x 6-12 mo. Continue Keppra for seizure prevention. Hypercoagulable workup was sent out. Problems: THEODORA HOGAN MD Sep 16, 2016 19:56
[2016-09-16] MEDS: LEVETIRACETAM 500 MG TAB PO SCH (20:54)
[2016-09-17] VITALS (13 sets, daily range): BP systolic 119–178; BP diastolic 49–81; PULSE 46–55; RESP 5–20
[2016-09-17] MEDS: PANTOPRAZOLE 40 MG INJ IV SCH (05:35)
[2016-09-17] MEDS: ENOXAPARIN 80 MG/0.8 ML SYG SC SCH ×2 (08:58→21:09)
[2016-09-17] MEDS: LEVETIRACETAM 500 MG TAB PO SCH ×2 (11:10→21:06)
--- NOTE | 2016-09-17 15:04 | PN ---
Date/Time of Note Date/Time of Note DATE: 09/17/16 TIME: 14:54 Assessment/Plan VTE Prophylaxis VTE Prophylaxis Intervention: SCD's Lines/Catheters IV Catheter Type (from [facility]): Peripheral IV Urinary Cath still in place: No Assessment/Plan Chief Complaint/Hosp Course 1. Headache secondary to acute hemorrhagic infarct -NS consult appreciated, Pt continues to have a L gaze preference -Neurology consult, BP control -Repeat CT Head is stable, PT eval 2. Atherosclerosis within the cerebral arteries. The patient has mild to moderate stenosis in multiple cerebral arteries -A1c and lipid profile within normal limits - No family history of clotting disorders, no aspirin at this time secondary to intracranial hemorrhage. 3. Prophylaxis: SCDs. Problems: Subjective 24 Hr Interval Summary Constitutional: no complaints Exam/Review of Systems Vital Signs Vitals Vital Signs Date Time Temp Pulse Resp B/P Pulse Ox O2 Delivery O2 Flow Rate FiO2 09/17/16 12:35 98.7 49 20 157/74 96 09/17/16 04:00 Room Air 09/14/16 12:32 2 Intake and Output 09/16/16 09/16/16 09/17/16 15:00 23:00 07:00 Intake Total 1300 ml 440 ml 320 ml Output Total 900 ml 600 ml 300 ml Balance 400 ml -160 ml 20 ml Exam Constitutional: alert, oriented Respiratory: clear to auscultation Cardiovascular: regular rate and rhythm Gastrointestinal: soft, No distended Musculoskeletal: nl extremities to inspection Neurological: other (L gaze preference ) Results Result Diagram: 09/15/1641909/15/16 042 Medications Medications Current Medications Ondansetron HCl (Zofran Inj) 4 mg Q6H PRN IV NAUSEA AND/OR VOMITING Last administered on 09/15/16 08:09; Admin Dose 4 MG; Start 09/14/16 at 19:00 Acetaminophen (Tylenol Tab) 650 mg Q6H PRN PO PAIN LEVEL 1-3 OR FEVER; Start at 19:00 Acetaminophen/ Hydrocodone Bitart ([place] (5/325)) 1 tab Q6H PRN PO MODERATE PAIN LEVEL 4-6 Last administered on 09/14/16 21:30; Admin Dose 1 TAB; Start at 19:00 Morphine Sulfate (morphine) 2 mg Q4H PRN IV SEVERE PAIN LEVEL 7-10 Last administered on 09/15/16 08:10; Admin Dose 2 MG; Start 09/14/16 at 19:00 Docusate Sodium (Colace) 100 mg Q12H PRN PO CONSTIPATION; Start 09/14/16 at 19: 00 Pantoprazole (Protonix Iv) 40 mg DAILY@06 IV Last administered on 09/17/16 05: 35; Admin Dose 40 MG; Start 09/15/16 at 06:00 Hydralazine HCl (Apresoline) 10 mg Q4H PRN IV For SBP >160 Last administered on 09/14/16 22:18; Admin Dose 10 MG; Start 09/14/16 at 22:30 Labetalol HCl (Labetalol) 20 mg Q2H PRN IV SBP>160; Start 09/15/16 at 14:30 Enoxaparin Sodium (Lovenox) 75 mg Q12 SC Last administered on 09/17/16 08:58; Admin Dose 75 MG; Start 09/16/16 at 09:00 Levetiracetam (Keppra) 500 mg BID PO Last administered on 09/17/16 11:10; Admin Dose 500 MG; Start 09/16/16 at 21:00 CRISTHIAN ANGUIANO Sep 17, 2016 15:04
[2016-09-17] MEDS: hydrALAzine 20 MG INJ IV PRN (21:06)
--- NOTE | 2016-09-17 22:01 | CONS ---
Date/Time of Note Date/Time of Note DATE: 09/17/16 TIME: 21:58 Consult Date/Type/Reason Admit Date/Time Sep 14, 2016 at 12:47 Type of Consultation: neurology Subjective No headaches, dizziness. Objective Vital Signs Date Time Temp Pulse Resp B/P Pulse Ox O2 Delivery O2 Flow Rate FiO2 09/17/16 20:28 98.5 54 16 178/80 97 09/17/16 04:00 Room Air 09/14/16 12:32 2 Intake and Output 09/16/16 09/16/16 09/17/16 15:00 23:00 07:00 Intake Total 1300 ml 440 ml 320 ml Output Total 900 ml 600 ml 300 ml Balance 400 ml -160 ml 20 ml Results/Medications Result Diagram: 09/15/16 0420 09/15/16 042 Medications Current Medications Ondansetron HCl (Zofran Inj) 4 mg Q6H PRN IV NAUSEA AND/OR VOMITING Last administered on 09/15/16 08:09; Admin Dose 4 MG; Start 09/14/16 at 19:00 Acetaminophen (Tylenol Tab) 650 mg Q6H PRN PO PAIN LEVEL 1-3 OR FEVER; Start at 19:00 Acetaminophen/ Hydrocodone Bitart ([place] (5/325)) 1 tab Q6H PRN PO MODERATE PAIN LEVEL 4-6 Last administered on 09/14/16 21:30; Admin Dose 1 TAB; Start at 19:00 Morphine Sulfate (morphine) 2 mg Q4H PRN IV SEVERE PAIN LEVEL 7-10 Last administered on 09/15/16 08:10; Admin Dose 2 MG; Start 09/14/16 at 19:00 Docusate Sodium (Colace) 100 mg Q12H PRN PO CONSTIPATION; Start 09/14/16 at 19: 00 Hydralazine HCl (Apresoline) 10 mg Q4H PRN IV For SBP >160 Last administered on 09/17/16 21:06; Admin Dose 10 MG; Start 09/14/16 at 22:30 Labetalol HCl (Labetalol) 20 mg Q2H PRN IV SBP>160; Start 09/15/16 at 14:30 Enoxaparin Sodium (Lovenox) 75 mg Q12 SC Last administered on 09/17/16 21:09; Admin Dose 75 MG; Start 09/16/16 at 09:00 Levetiracetam (Keppra) 500 mg BID PO Last administered on 09/17/16 21:06; Admin Dose 500 MG; Start 09/16/16 at 21:00 Pantoprazole (Protonix Tab) 40 mg DAILY@06 PO ; Start 09/18/16 at 06:00 Assessment/Plan Chief Complaint/Hosp Course Per MRI report "The location of hemorrhage and prior CT and CTA findings are suggestive of hemorrhage in the setting of a venous thrombosis in the distribution of vein of Efren" PHYSICAL EXAMINATION: GENERAL: Not in acute distress, lying in bed. HEENT: Normocephalic, atraumatic head. NECK: No carotid bruits. No thyromegaly. LUNGS: Clear to auscultation bilaterally. CARDIAC: Normal cardiac rhythm and sounds. ABDOMEN: Soft, nontender. EXTREMITIES: No cyanosis, clubbing or edema. NEUROLOGIC: She is awake, alert and oriented. Fluent speech. Cranial nerve examination shows intact visual vaughan. Pupils reactive from 3 to 2 mm bilaterally. The patient has conjugate eye deviation to the left but able to move to the right and minimally crossing the midline. Slightly asymmetrical face with right nasolabial fold flattening. Present corneal reflexes, normal sensation on the face. Tongue is in midline. Motor strength examination preserved in all extremities. Normal bulk, tone and strength. Sensory examination intact to light touch and pain. Deep tendon reflexes 2+ throughout. Downgoing toes bilaterally. IMPRESSION: Acute intracerebral hemorrhage secondary to venous thrombosis. Pt was started on anticoagulation with lovenox, she will need coumadin x 6-12 mo. PMD please start. Continue Keppra for seizure prevention. Hypercoagulable workup was sent out. Dr. Sanders will follow Problems: THEODORA HOGAN MD Sep 17, 2016 22:01
[2016-09-18 00:43] VITALS: BP 128/61; RESP 16
[2016-09-18 02:00] VITALS: BP 139/68; PULSE 62; RESP 18
[2016-09-18 05:25] LABS: BASOPHILS % 0.6 % (0.0-2.0); EOSINOPHILS # 0.1 10^3/ul (0.0-0.5); EOSINOPHILS % 2.2 % (0.0-7.0); HEMATOCRIT 40.3 % (37.0-47.0); HEMOGLOBIN 13.3 g/dl (12.0-16.0); LYMPHOCYTES # 2.2 10^3/ul (0.8-2.9); LYMPHOCYTES % 32.8 % (15.0-51.0); MEAN CORPUSCULAR HEMOGLOBIN 28.7 pg (29.0-33.0); MEAN CORPUSCULAR HGB CONC 32.9 g/dl (32.0-37.0); MEAN CORPUSCULAR VOLUME 87.2 fl (82.0-101.0); MEAN PLATELET VOLUME 8.7 fl (7.4-10.4); MONOCYTE # 0.5 10^3/ul (0.3-0.9); MONOCYTES % 6.8 % (0.0-11.0); NEUTROPHIL # 3.9 10^3/ul (1.6-7.5); NEUTROPHILS % 57.6 % (39.0-77.0); PLATELET COUNT 247 10^3/UL (140-440); RED BLOOD COUNT 4.62 10^6/ul (4.20-5.40); RED CELL DISTRIBUTION WIDTH 13.9 % (11.5-14.5); UNCORRECTED WBC 6.8 10^3/ul (4.8-10.8); WHITE BLOOD COUNT 6.8 10^3/ul (4.8-10.8)
[2016-09-18 05:34] LABS: CONDITION 1
[2016-09-18 05:38] LABS: POTASSIUM 4.1 mmol/L (3.5-5.1)
[2016-09-18 05:40] LABS: CREATININE 0.74 mg/dl (0.44-1.00)
[2016-09-18 05:41] LABS: CALCIUM 9.2 mg/dl (8.4-10.2)
[2016-09-18] MEDS ORDERED: PANTOPRAZOLE (EC) 40 MG TAB PO SCH (06:00)
[2016-09-18 08:10] VITALS: BP 147/67; RESP 16
[2016-09-18] MEDS: LEVETIRACETAM 500 MG TAB PO SCH (08:20)
[2016-09-18] MEDS: ENOXAPARIN 80 MG/0.8 ML SYG SC SCH (08:23)
--- NOTE | 2016-09-18 11:45 | CONS ---
Date/Time of Note Date/Time of Note DATE: 09/18/16 TIME: 11:39 Assessment/Plan Assessment/Plan Additional Assessment/Plan Acute intracerebral hemorrhage secondary to venous thrombosis. Pt was started on anticoagulation with lovenox, she will need coumadin x 6-12 mo. PMD please start. Continue Keppra for seizure prevention. Hypercoagulable workup was sent out. Plan: 1 Start Coumadin for fdc anticoaguation per protocol 2 Keep INR between 2-3 3 Will follow Consultation Date/Type/Reason Admit Date/Time Sep 14, 2016 at 12:47 Initial Consult Date Type of Consultation: neurology 24 HR Interval Summary Free Text/Dictation Doing well. No new complaints. Constitutional: improved, no complaints Exam/Review of Systems Vital Signs Vitals Vital Signs Date Time Temp Pulse Resp B/P Pulse Ox O2 Delivery O2 Flow Rate FiO2 09/18/16 08:10 98.6 55 16 147/67 96 09/18/16 02:00 Room Air 09/14/16 12:32 2 Intake and Output 09/17/16 09/17/16 09/18/16 15:00 23:00 07:00 Intake Total 700 ml 480 ml Balance 700 ml 480 ml Exam Constitutional: alert, oriented, well developed Psych: nl mood/affect, no complaints Head: atraumatic, normocephalic Eyes: EOMI, nl conjunctiva, nl lids ENMT: nl external ears & nose, nl lips & teeth, nl nasal mucosa & septum Neck: non-tender, supple Respiratory: clear to auscultation, normal air movement Cardiovascular: nl pulses, regular rate and rhythm Gastrointestinal: nl liver, spleen, non-tender, soft Musculoskeletal: nl extremities to inspection, nl gait and stance Extremities: normal pulses Neurological: CONFIGURATION ENGINEER II-XII intact, nl mental status, nl speech, nl strength Skin: nl turgor, rash or lesions Lymph: nl lymph nodes Results Result Diagram: 09/18/16 0450 09/18/16 0450 Results 24 hrs Laboratory Tests Test 09/18/16 04:50 Anion Gap 13 Basophils # 0.0 Basophils % 0.6 Blood Morphology Comment Blood Urea Nitrogen 12 Calcium Level 9.2 Carbon Dioxide Level 30 Chloride Level 104 Creatinine 0.74 Eosinophils # 0.1 Eosinophils % 2.2 Glucose Level 103 Hematocrit 40.3 Hemoglobin 13.3 Lymphocytes # 2.2 Lymphocytes % 32.8 Mean Corpuscular Hemoglobin 28.7 L Mean Corpuscular Hemoglobin Concent 32.9 Mean Corpuscular Volume 87.2 Mean Platelet Volume 8.7 Monocytes # 0.5 Monocytes % 6.8 Neutrophils # 3.9 Neutrophils % 57.6 Nucleated Red Blood Cells # 0.0 Nucleated Red Blood Cells % 0.0 Platelet Count 247 Potassium Level 4.1 Red Blood Count 4.62 Red Cell Distribution Width 13.9 Sodium Level 143 White Blood Count 6.8 # Medications Medications Current Medications Ondansetron HCl (Zofran Inj) 4 mg Q6H PRN IV NAUSEA AND/OR VOMITING Last administered on 09/15/16 08:09; Admin Dose 4 MG; Start 09/14/16 at 19:00 Acetaminophen (Tylenol Tab) 650 mg Q6H PRN PO PAIN LEVEL 1-3 OR FEVER; Start at 19:00 Acetaminophen/ Hydrocodone Bitart ([place] (5/325)) 1 tab Q6H PRN PO MODERATE PAIN LEVEL 4-6 Last administered on 09/14/16 21:30; Admin Dose 1 TAB; Start at 19:00 Morphine Sulfate (morphine) 2 mg Q4H PRN IV SEVERE PAIN LEVEL 7-10 Last administered on 09/15/16 08:10; Admin Dose 2 MG; Start 09/14/16 at 19:00 Docusate Sodium (Colace) 100 mg Q12H PRN PO CONSTIPATION; Start 09/14/16 at 19: 00 Hydralazine HCl (Apresoline) 10 mg Q4H PRN IV For SBP >160 Last administered on 09/17/16 21:06; Admin Dose 10 MG; Start 09/14/16 at 22:30 Labetalol HCl (Labetalol) 20 mg Q2H PRN IV SBP>160; Start 09/15/16 at 14:30 Enoxaparin Sodium (Lovenox) 75 mg Q12 SC Last administered on 09/18/16 08:23; Admin Dose 75 MG; Start 09/16/16 at 09:00 Levetiracetam (Keppra) 500 mg BID PO Last administered on 09/18/16 08:20; Admin Dose 500 MG; Start 09/16/16 at 21:00 Pantoprazole (Protonix Tab) 40 mg DAILY@06 PO Last administered on 09/18/16t 05 :32; Admin Dose 40 MG; Start 09/18/16 at 06:00 Procedures Procedures 09/15/16 CT brain IMPRESSION: 1. Unchanged small area of hemorrhage with minimal surrounding vasogenic edema in the posterior left temporal lobe. 2. No new intracranial hemorrhage, increasing mass effect or midline shift. RPTAT: BB .Buddy Moser MD, Date Time Electronically viewed and signed by .Buddy Moser MD, on 09/16/2016 16:33 09/16/16 MRI of brain IMPRESSION: 1. Left posterior temporal lobe probable acute to subacute hemorrhage with trace surrounding vasogenic edema. No definite associated enhancing lesion is noted considering susceptibility artifacts. 2. No acute intracranial infarction or mass. No intracranial enhancing abnormality. 3. Trace presumed chronic small vessel ischemic changes. RPTAT: QQ .Dereck Olmos MD, Date Time Electronically viewed and signed by .Dereck Olmos MD, on 09/16/2016 09: 56 09/14/16 CTA of head IMPRESSION: 1. Moderate focal right M1 middle cerebral artery stenosis. 2. Mild long segment left M2 middle cerebral artery stenosis. 3. Moderate multifocal left P1/P2 posterior cerebral artery stenosis. 4. Severe focal stenosis of the proximal left superior cerebellar artery. 5. No evidence of aneurysm. 6. No abnormal enhancement within the left posterior temporal hyperdense region. MRI of the brain may be performed as clinically warranted. Further findings as detailed above. RPTAT: PP .Ryan Gaytan MD, Date Time Electronically viewed and signed by .Ryan Gaytan MD, MD on 09/14/2016 15:48 UMA ELLSWORTH MD Sep 18, 2016 11:45
--- NOTE | 2016-09-18 15:59 | PDOCDIS ---
Discharge Instructions CONDITION Patient Condition: Good HOME CARE INSTRUCTIONS: Diet Instructions: Regular ACTIVITY: Activity Restrictions: No Restrictions FOLLOW UP/APPOINTMENTS Appointments F/U WITH YOUR PCP IN 1-2 WEEKS, F/U WITH HOME HEALTH CRISTHIAN ANGUIANO Sep 18, 2016 15:59
[2016-09-18] MEDS ORDERED: COU5 PO (16:02)
--- NOTE | 2016-09-18 19:16 | DS ---
DATE OF ADMISSION: 09/14/2016 DATE OF DISCHARGE: 09/18/2016 DISCHARGE DIAGNOSES: Headache secondary to acute hemorrhagic infarct from venous thrombosis. The p atient started on Lovenox and has been discharge with Coumadin. The patient to follow up at [facility] as an outpatient. HOSPITAL COURSE: The patient is a 61-year-old female with no medical history. The patient presents with headache. The patient presented to the ED where a brain CT showed acute hemorrhagic infarct i n the left posterior temporal lobe. Head CTA showed no evidence for venous sinus thrombosis, modera te focal right MCA stenosis, severe focal proximal left superior cerebellar artery stenosis. There was also moderate multifocal left T1-T2 posterior cerebral artery stenosis. The patient had a brain MRI that showed once again a left posterior temporal lobe acute subacute hemorrhage, the space surr ounding vasogenic edema. A repeat brain CT showed unchanged area of hemorrhage based on neurology e valuation, so the patient had an acute intracerebral hemorrhage secondary to venous thrombosis. The patient was started on anticoagulation with Lovenox. Recommended 6 to 12 months of Coumadin. Diag nosis of the venous sinus thrombosis was made by the neurologist. It was also felt to be a possible venous thrombosis according to neurosurgery note. A CT angiogram was reviewed by neuroradiologist with the neurologist and was felt the patient does have venous sinus thrombosis. Once the Lovenox t herapy doses were initiated. Recommendation was for discharge with Coumadin. The patient did have a left gaze preference and to visualize her right eye visual space. The patient was evaluate d by physical therapist and was felt the patient was stable for discharge back home with home health with front-wheeled walker. The patient's daughter was spoken to and was instructed that the patistephany t will be started on Coumadin. She should be on Coumadin for 6 to 12 months with INR goal of 2 to 3 . The patient was going to be taken at [facility] by the daughter. The patient's daughter understo od the undersigned diagnosis. On the date of discharged the patient's vitals, labs, physical exam w ere stable. She had no acute complaints and questions were answered. CONDITION ON DISCHARGE: Stable. DISPOSITION: To home with home health. MEDICATIONS: Coumadin 5 mg daily. FOLLOWUP: The patient is to follow up with [facility] as soon as possible, as well as with home [facility]. Home health was arranged by nurse outreach case manager. The patient was also provided a front-wheel walker. The patient's daughter understood that she needs to follow up with [facility] as soon as possible to have INR checked and had to be given further Coumadin instructions. Greater than 30 minutes was spent coordinating discharge of patient. Dictated By: CRISTHIAN ANGUIANO MD BS/NTS Conf#: [id number] DID#: [id number]
== END 2016-09-18 19:05 | disposition home health service (06) | DRG 65 ==
LOC: E/R 09:34 → ICU 12:47 → MS4 09-17 04:32 → MS2 09-18 02:09
PROVIDERS: ADMIT Family Medicine; ATTEND Family Medicine
DX: I63.6 Cerebral infarction due to cerebral venous thrombosis, nonpyogenic (principal); I16.1 Hypertensive emergency; I67.2 Cerebral atherosclerosis
CPT/HCPCS: 36415; 70450; 70496; 70552; 71010; 80048; 80053; 80061; 81001; 81003; 83036; 83735; 83890; 84100; 84484; 85025; 85300; 85302; 85305; 85378; 85610; 85613; 85730; 87081; 93005; 96374; 96375; 97163; C9113; J0360; J1953; J2270; J2405; Q9967

== ENCOUNTER 2016-09-22 10:12 | Emergency (ER) | END 2016-09-22 13:11 | disposition home or self-care (01) | DX: H92.01 Otalgia, right ear (principal); I10 Essential (primary) hypertension; R51 Headache; R11.0 Nausea; Z79.01 Long term (current) use of anticoagulants | CPT/HCPCS: 70450; Z7502; Z7610 ==

== ENCOUNTER 2018-09-24 05:38 | Emergency (ER) | payer MEDICAID ==
[~2018-09-24] VITALS: Ht 165.1 cm; Wt 75.1 kg
[~2018-09-24 05:38] MED LIST: COU5 PO; HYDR-4011 PO
[2018-09-24 05:46] VITALS: PULSE 73; RESP 18; Ht 165.1 cm; Wt 75.1 kg
[2018-09-24] MEDS ORDERED: HYDR25TA6 PO (06:47)
[2018-09-24] MEDS ORDERED: D-ME473S2 PO (06:49)
--- NOTE | 2018-09-24 06:51 | ERD ---
ER Documentation Chief Complaint Chief Complaint cough x 3 weeks, sob last night. no wheezing HPI 63-year-old female presents with a dry cough for last 3 weeks. Started shortly after initiating losartan. She denies productive mucus, fevers, chest pain, hemoptysis. ROS All systems reviewed and are negative except as per history of present illness. Medications Home Meds Active Scripts Dextromethorphan Hb-Promethazine Hcl* (Promethazine DM* Syrup) 473 Ml Syrup, 5 ML PO Q6 PRN for COUGH for 4 Days, ML Prov:RUPESH DAVIS MD 09/24/18 Hydrochlorothiazide* (Hydrochlorothiazide*) 25 Mg Tab, 25 MG PO DAILY, #30 TAB Prov:RUPESH DAVIS MD 09/24/18 Hydrocodone/Acetaminophen ([place] 5-325 Tablet) 1 Each Tablet, 1 EACH PO Q6, #10 TAB Prov:WILBERTO HAWKINS MD 09/22/16 Warfarin Sod (Coumadin) 5 Mg Tab, 5 MG PO DAILY for 10 Days, TAB Prov:CRISTHIAN ANGUIANO 09/18/16 Allergies Allergies: Coded Allergies: No Known Allergy (Unverified , 09/24/18) PMhx/Soc History of Surgery: No Anesthesia Reaction: No Hx Neurological Disorder: Yes (TIA-residual right facial droop) Hx Respiratory Disorders: No Hx Cardiac Disorders: Yes (HTN) Hx Psychiatric Problems: No Hx Miscellaneous Medical Probl: Yes (C section) Hx Alcohol Use: No Hx Substance Use: No Hx Tobacco Use: No FmHx Family History: No diabetes, No coronary disease, No other Physical Exam Vitals Vital Signs Date Temp Pulse Resp B/P (MAP) Pulse Ox O2 O2 Flow FiO2 Time Delivery Rate 09/24/18 97.4 73 18 179/84 98 05:46 (115) Physical Exam Const: No acute distress Head: Atraumatic Eyes: Normal Conjunctiva ENT: Normal External Ears, Nose and Mouth. TMs and oropharynx normal. Neck: Full range of motion. No meningismus. Resp: Clear to auscultation bilaterally .dry cough without rales, wheezing or retractions. Cardio: Regular rate and rhythm, no murmurs Abd: Soft, non tender, non distended. Normal bowel sounds Skin: No petechiae or rashes Back: No midline or flank tenderness Ext: No cyanosis, or edema Neur: Awake and alert Psych: Normal Mood and Affect Procedures/MDM EKG: Rate/Rhythm: Normal Sinus Rhythm. Rate equals 72 QRS, ST, T-waves: No changes consistent w/ acute ischemia Impression: No evidence of ischemia or arrhythmia. Impression-normal EKG Chest X-ray 1V Interpreted by me: Soft Tissue: No acute abnormalities Bones: No acute abnormalities Mediastinum/Cardiac Silhouette/Lungs: No acute abnormalities. Impression- normal 1 view chest x-ray Presents with a cough for last 3 weeks after starting losartan. She has no evidence of pneumonia, respiratory distress, hypoxemia. Doubt PE. She has no history of chest pain. 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 We will discontinue losartan, initiate hydrochlorothiazide and patient is recommended for primary care follow-up for poorly controlled hypertension. She has no evidence to suggest endorgan damage or hypertensive emergency. The patient was stable with no new complaints during the ER course. Clinically, there is no current evidence to suggest meningitis, sepsis, acute abdomen, pneumonia, stroke, acute coronary syndrome, pulmonary embolism, aortic dissection or any other emergent condition appearing to require further evaluation or hospitalization. Patient counseled regarding my diagnostic impression and care plan. Prior to discharge all questions answered. Pt agrees with treatment plan and understands strict return precautions. Pt is instructed to follow up with primary care provider within 24-48 hours. Precautionary instructions provided including instructions to return to the ER if not improving or for any worsening or changing symptoms or concerns. Disclaimer: Inadvertent spelling and grammatical errors are likely due to EHR/dictation software use and do not reflect on the overall quality of patient care. Also, please note that the electronic time recorded on this note does not necessarily reflect the actual time of the patient encounter. Departure Diagnosis: Primary Impression: Cough Condition: Stable Patient Instructions: Cough, Chronic, Uncertain Cause, (Adult) Referrals: NO PRIMARY,CARE PHYSICIAN (PCP) Additional Instructions: EKG and x-ray normal. Suspect side effect to losartan. Discontinue this medication and initiate new medication. Recheck otherwise for new or worsening symptoms-chest pain, fevers, additional symptoms. RUPESH DAVIS MD Sep 24, 2018 06:51
[2018-09-24 07:16] VITALS: BP 168/81
== END 2018-09-24 07:17 | disposition home or self-care (01) ==
LOC: FTE 05:38
DX: R05 Cough (principal); I10 Essential (primary) hypertension; Z86.73 Personal history of transient ischemic attack (TIA), and cerebral infarction without residual deficits; Z79.01 Long term (current) use of anticoagulants
CPT/HCPCS: 71045; Z7502; 93005